=== PATIENT | female | born 1990 | race Caucasian/White ===

== ENCOUNTER 2020-03-21 06:52 | Emergency (ER) | payer OTHER, MEDICAID, SELFPAY ==
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
[2020-03-21 06:52] VITALS: BP 134/78; PULSE 99; RESP 16; TEMP 36.9; O2SAT 98
[2020-03-21 07:15] VITALS: BP 118/76; PULSE 94; O2SAT 100; BMI 20.9
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
[2020-03-21 07:28] LABS: HCG Qualitative, Serum Negative (Negative)
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
[2020-03-21 07:34] VITALS: BP 111/67; PULSE 84; O2SAT 100
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
[2020-03-21 07:44] LABS: Basophils # 0.1 K/mm3 (0-0.2); Basophils % 0.7 % (0.1-2.0); Eosinophils # 0.8 K/mm3 (0.0-0.4); Eosinophils % 8.5 % (0.1-12.0); Lymphocytes # 1.9 K/mm3 (0.7-4.5); Lymphocytes % 20.8 % (10-50); Mean Corpuscular HGB Conc 34.3 g/dL (31.8-35.4); Mean Corpuscular Volume 93.2 fl (81-99); Monocytes # 0.4 K/mm3 (0.1-1.0); Monocytes % 4.7 % (1.7-9.3); Neutrophils # 5.9 K/mm3 (1.8-7.8); Neutrophils % 65.3 % (37.0-80.0); Platelet Count 193 K/mm3 (142-424); Red Blood Count 4.07 M/mm3 (4.20-5.40); Red Cell Distribution Width 12.1 % (11.5-17.5)
[2020-03-21 07:45] LABS: Anion Gap 8.6 mEq/L (5-15); Blood Urea Nitrogen 11 mg/dl (7-17); Calcium 8.4 mg/dl (8.4-10.2); Carbon Dioxide 25 mmol/L (22.0-30.0); Chloride 110 mmol/L (98-107); Creatinine Clearance Estimated 110 mL/min (50-200); Estimated Glomerular Filt Rate 99 ml/min (>60); GFR (African American) 120 ML/MIN (>60); Glucose 110 mg/dl (74-100); Potassium 3.6 mmoL/L (3.5-5.1); Sodium 140 mmol/L (136-145)
[2020-03-21 07:48] LABS: Ethyl Alcohol < 10 mg/dl (0-10)
[2020-03-21 07:50] LABS: Microscopic, Urine URINE MICROSCOPIC (MICROSCOPIC)
--- NOTE | 2020-03-21 07:50 | PC.NURSE ---
Pt used bed umana at this time. UA sent to lab.
[2020-03-21 07:52] LABS: Alanine Aminotransferase 19 U/L (12-78); Aspartate Amino Transferase 39 U/L (14-36)
[2020-03-21 07:53] LABS: Albumin Level 3.5 g/dl (3.5-5.0); Albumin/Globulin Ratio 1.3 (1.1-1.8); Alkaline Phosphatase 45 U/L (38-126); Bilirubin,Total 0.4 mg/dl (0.2-1.3); Globulin 2.6 g/dL (1.3-3.2); Total Protein,Serum 6.1 g/dl (6.3-8.2)
[2020-03-21 07:53] LABS: Appearance,Urine SL CLOUDY (Clear); Bilirubin,Urine Negative (Negative); Blood, Urine 2+ (Negative); Color,Urine YELLOW (Yellow); Glucose,Urine (UA) Negative (Negative); Ketones,Urine Negative (Negative); Leukocyte Esterase,Urine Negative (Negative); Nitrate,Urine Negative (Negative); Protein,Urine Negative (Negative); Specific Gravity, Urine 1.015 (1.005-1.030); Urobilinogen,Urine 0.2 EU/dl (0.2)
[2020-03-21 08:09] LABS: Bacteria,Urine 1+ /lpf
--- NOTE | 2020-03-21 08:12 | PC.NURSE ---
Pt is with Rad.
[2020-03-21 09:16] VITALS: BP 105/58; PULSE 69; O2SAT 100
--- NOTE | 2020-03-21 09:34 | PC.NURSE ---
MEGAN FERRARA speaking with radiologist
--- NOTE | 2020-03-21 09:48 | PC.NURSE ---
calling [facility] at this time
--- NOTE | 2020-03-21 09:53 | PC.NURSE ---
At BS at this time with ER MD while she discusses POC with Pt and family. Pt educated on importance of keeping her neck still and keeping her c-collar in place and not to pull on it or move it. Pt verbalized understanding.
--- NOTE | 2020-03-21 09:55 | PC.NURSE ---
Dr Chavez speaking with Dr Pace at this time.
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
--- NOTE | 2020-03-21 10:10 | PC.NURSE ---
Report called to Jessica ROBLEDO RN. Awaiting EMS for transportation
[2020-03-21 10:35] VITALS: BP 105/58; PULSE 69; RESP 19; TEMP 36.9; O2SAT 100
[2020-05-24 09:27] LABS: POC Glucose,Bedside 156 (70-110)
== END 2020-03-21 10:37 | disposition short-term general hospital (02) ==
PROVIDERS: Emergency Provider Emergency Medicine
DX: S12.590A Other displaced fracture of sixth cervical vertebra, initial encounter for closed fracture (principal); S12.690A Other displaced fracture of seventh cervical vertebra, initial encounter for closed fracture; S27.321A Contusion of lung, unilateral, initial encounter; S06.2X1A Diffuse traumatic brain injury with loss of consciousness of 30 minutes or less, initial encounter; V49.49XA Driver injured in collision with other motor vehicles in traffic accident, initial encounter; Y92.413 State road as the place of occurrence of the external cause; M25.511 Pain in right shoulder; M79.671 Pain in right foot
CPT/HCPCS: 70450; 71045; 71275; 72125; 72128; 72131; 72170; 73030; 73630; 74177; 80053; 81001; 82962; 84703; 85025; 96365; 96375; 99283; J2405; Q9967

== ENCOUNTER 2020-11-01 15:00 | Outpatient (RCR) | payer OTHER, SELFPAY ==
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
== END 2020-11-26 15:00 | disposition home or self-care (01) ==
LOC: PT.CARL 15:00
PROVIDERS: Visit Provider Emergency Medicine
DX: M54.9 Dorsalgia, unspecified (principal); M79.601 Pain in right arm
CPT/HCPCS: 97110; 97116; 97140; 97163; 97164; 97530

== ENCOUNTER 2023-03-18 07:14 | Emergency (ER) | payer OTHER, SELFPAY ==
[2023-03-18] VITALS (8 sets, daily range): BP systolic 107–127; BP diastolic 67–85; PULSE 74–110; RESP 15–20; TEMP 36.7–36.8; O2SAT 98–100
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
--- NOTE | 2023-03-18 07:27 | PC.NURSE ---
trauma alert cancelled
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
[2023-03-18 07:35] LABS: Basophils % 0.2 % (0.1-2.0); Eosinophils # 0.3 K/mm3 (0.0-0.4); Eosinophils % 2.9 % (0.1-12.0); Hemoglobin 14.2 g/dL (12.2-16.2); Lymphocytes # 1.6 K/mm3 (0.7-4.5); Lymphocytes % 14.9 % (10-50); Mean Corpuscular HGB Conc 32.9 g/dL (31.8-35.4); Mean Corpuscular Hemoglobin 28.7 pg (27.0-31.2); Mean Corpuscular Volume 87.1 fl (81-99); Mean Platelet Volume 9.5 fl (7.4-10.4); Monocytes # 0.6 K/mm3 (0.1-1.0); Monocytes % 5.1 % (1.7-9.3); Neutrophils # 8.3 K/mm3 (1.8-7.8); Platelet Count 268 K/mm3 (142-424); Red Blood Count 4.94 M/mm3 (4.20-5.40); Red Cell Distribution Width 12.1 % (11.5-17.5); White Blood Count 10.8 K/mm3 (4.8-10.8)
--- NOTE | 2023-03-18 07:35 | PC.NURSE ---
pt wet clothes removed pt in clean gown, warm blankets given, socks on pt. pt remains in c-collar
--- NOTE | 2023-03-18 07:37 | ECG_ITS ---
APPROVED REPORT Exam: Resting ECG HR:94 bpm ECG Measurements Heart Rate 94 AXES NC 147 P 83 QRSd 87 QRS 94 QT 358 T 50 QTc 410 Conclusion SINUS RHYTHM WITH SINUS ARRHYTHMIA POSSIBLE RIGHT ATRIAL ENLARGEMENT [0.25mV P-WAVE] BORDERLINE RIGHT AXIS DEVIATION [QRS AXIS > 90] BORDERLINE ECG Marked artifact limits interpretation UNCONFIRMED REPORT Electronically signed by : Jasen Carr MD 03/20/2023 16:10:39
[2023-03-18 07:40] LABS: Potassium 3.6 mmoL/L (3.5-5.1)
[2023-03-18 07:41] LABS: Alanine Aminotransferase 19 U/L (12-78); Albumin Level 4.2 g/dl (3.5-5.0); Albumin/Globulin Ratio 1.5 (1.1-1.8); Alkaline Phosphatase 57 U/L (38-126); Anion Gap 13.6 mEq/L (5-15); Aspartate Amino Transferase 31 U/L (14-36); Bilirubin,Total 0.4 mg/dl (0.2-1.3); Blood Urea Nitrogen 16 mg/dl (7-17); Calcium 8.8 mg/dl (8.4-10.2); Carbon Dioxide 26 mmol/L (22.0-30.0); Chloride 102 mmol/L (98-107); Estimated Glomerular Filt Rate 97 ml/min (>60); GFR (African American) 117 ML/MIN (>60); Globulin 2.8 g/dL (1.3-3.2); Glucose 100 mg/dl (74-100); Sodium 138 mmol/L (136-145)
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
--- NOTE | 2023-03-18 07:42 | PC.NURSE ---
pt to CT via stretcher
[2023-03-18 07:54] LABS: Troponin I 0.02 ng/ml (0.00-0.034)
[2023-03-18 07:58] LABS: HCG,Quantitative < 2 mIU/ml (0-5.42)
[2023-03-18 08:03] LABS: Activated Partial Thrombo Time 18.2 seconds (22.8-30.6)
--- NOTE | 2023-03-18 08:21 | PC.NURSE ---
pt return from CT
[2023-03-18 08:55] LABS: Microscopic, Urine URINE MICROSCOPIC (MICROSCOPIC)
[2023-03-18 08:56] LABS: Appearance,Urine CLEAR (Clear); Bilirubin,Urine Negative (Negative); Blood, Urine Negative (Negative); Color,Urine YELLOW (Yellow); Glucose,Urine (UA) Negative (Negative); Ketones,Urine Negative (Negative); Leukocyte Esterase,Urine Negative (Negative); Nitrate,Urine Negative (Negative); Protein,Urine Negative (Negative); Specific Gravity, Urine 1.015 (1.005-1.030); Urobilinogen,Urine 0.2 EU/dl (0.2)
[2023-03-18 09:11] LABS: Squamous Epithelial Cell,Urine Occasional #/hpf (0-5); WBC,Urine Occasional #/hpf (0-3)
== END 2023-03-18 11:27 | disposition home or self-care (01) ==
PROVIDERS: Emergency Provider Emergency Medicine; PCP Nurse Practitioner Family
DX: R07.89 Other chest pain (principal); R51.9 Headache, unspecified; S00.93XA Contusion of unspecified part of head, initial encounter; S01.311A Laceration without foreign body of right ear, initial encounter; F17.290 Nicotine dependence, other tobacco product, uncomplicated; V48.5XXA Car driver injured in noncollision transport accident in traffic accident, initial encounter
CPT/HCPCS: 70450; 70486; 70496; 70498; 71045; 71275; 72125; 72128; 72131; 72170; 74174; 80053; 81001; 84484; 84702; 85025; 85730; 93005; 96361; 96374; 96375; 99285; J0131; Q9967

== ENCOUNTER 2024-07-18 11:28 | Emergency (ER) | payer BC, SELFPAY ==
[2024-07-18 11:30] VITALS: BP 137/78; PULSE 101; RESP 22; TEMP 36.5; O2SAT 98; BMI 25.3
[2024-07-18 11:36] VITALS: BP 138/78; PULSE 99; O2SAT 100
[2024-07-18] MEDS: BELLADONNA ALKALOIDS 60 ML ML PO (12:06)
[2024-07-18] MEDS: KETOROLAC 30MG/ML VIAL 15 MG IV (12:06)
[2024-07-18] MEDS: SODIUM CHLORIDE 0.9% 10ML VIAL 10 ML IV (12:06)
[2024-07-18] MEDS: PANTOPRAZOLE 40MG VIAL 40 MG IV (12:06)
[2024-07-18 12:09] LABS: Basophils # 0.1 K/mm3 (0-0.2); Basophils % 0.6 % (0.1-2.0); Eosinophils # 0.3 K/mm3 (0.0-0.4); Eosinophils % 2.7 % (0.1-12.0); Hematocrit 40.2 % (37.0-47.0); Hemoglobin 13.9 g/dL (12.2-16.2); Lymphocytes # 1.5 K/mm3 (0.7-4.5); Lymphocytes % 16.5 % (10-50); Mean Corpuscular HGB Conc 34.6 g/dL (31.8-35.4); Mean Corpuscular Hemoglobin 29.1 pg (27.0-31.2); Mean Corpuscular Volume 84.1 fl (81-99); Mean Platelet Volume 9.8 fl (7.4-10.4); Monocytes # 0.5 K/mm3 (0.1-1.0); Monocytes % 5.5 % (1.7-9.3); Neutrophils % 74.5 % (37.0-80.0); Platelet Count 318 K/mm3 (142-424); Red Blood Count 4.78 M/mm3 (4.20-5.40); Red Cell Distribution Width 11.2 % (11.5-17.5); White Blood Count 9.4 K/mm3 (4.8-10.8)
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
[2024-07-18 12:35] LABS: Alanine Aminotransferase 14 U/L (12-78); Albumin Level 4.4 g/dl (3.5-5.0); Albumin/Globulin Ratio 1.7 (1.1-1.8); Alkaline Phosphatase 57 U/L (38-126); Anion Gap 10.7 mEq/L (5-15); Aspartate Amino Transferase 21 U/L (14-36); Bilirubin,Total 0.6 mg/dl (0.2-1.3); Blood Urea Nitrogen 10 mg/dl (7-17); Carbon Dioxide 28 mmol/L (22.0-30.0); Chloride 99 mmol/L (98-107); Creatinine Clearance Estimated 127 mL/min (50-200); Estimated Glomerular Filt Rate 96 ml/min (>60); GFR (African American) 116 ML/MIN (>60); Globulin 2.6 g/dL (1.3-3.2); Glucose 100 mg/dl (74-100); Lipase 36 U/L (23-300); Potassium 3.7 mmoL/L (3.5-5.1); Sodium 134 mmol/L (136-145)
[2024-07-18 12:52] LABS: HCG,Quantitative < 2 mIU/ml (0-5.42)
[2024-07-18 13:17] LABS: HIV Combo NEGATIVE (Negative)
[2024-07-18 13:20] VITALS: BP 114/67; PULSE 87; O2SAT 99
--- NOTE | 2024-07-18 13:22 | PC.NURSE ---
ROUNDED ON PT ADJUSTED HEAD OF BED FOR MORE COMFORTABLE POSITION AND WAS GIVEN A WARM BLANKET AND LIGHT TURNED OFF SO PT COULD REST NO OTHER NEEDS AT THIS TIME CALL LIGHT IN REACH
[2024-07-18 13:24] LABS: Hepatitis C Ab Qual. W/ RFX REACTIVE (Negative)
[2024-07-18 13:30] VITALS: BP 112/67; PULSE 84; O2SAT 99
[2024-07-18 14:00] VITALS: BP 113/64; PULSE 82; O2SAT 99
[2024-07-18 14:29] VITALS: BP 113/64; PULSE 79; RESP 20; TEMP 36.6; O2SAT 98
== END 2024-07-18 14:30 | disposition home or self-care (01) ==
PROVIDERS: Emergency Provider Emergency Medicine; PCP Nurse Practitioner Family
DX: K29.70 Gastritis, unspecified, without bleeding (principal); R07.9 Chest pain, unspecified; R06.02 Shortness of breath; R10.10 Upper abdominal pain, unspecified; M54.9 Dorsalgia, unspecified
CPT/HCPCS: 80053; 83690; 84702; 85025; 86803; 87389; 87522; 96374; 96375; 99283; J1885

== ENCOUNTER 2025-04-11 22:30 | Outpatient (CLI) | payer BC, SELFPAY ==
[2025-04-11 19:16] LABS: Hematocrit 42.1 % (37.0-47.0); Hemoglobin 13.9 g/dL (12.2-16.2); Immature Granulocytes % 0.4 %; Mean Corpuscular HGB Conc 33.0 g/dL (31.8-35.4); Mean Corpuscular Hemoglobin 28.9 pg (27.0-31.2); Mean Corpuscular Volume 87.5 fl (81-99); Nucleated Red Blood Cells % 0 %; Platelet Count 284 K/mm3 (142-424); Red Blood Count 4.81 M/mm3 (4.20-5.40); Red Cell Distribution Width-SD 38.4 fL; White Blood Count 7.5 K/mm3 (4.8-10.8)
[2025-04-11 20:10] LABS: Alanine Aminotransferase 17 U/L (12-78); Albumin Level 4.3 g/dl (3.5-5.0); Albumin/Globulin Ratio 1.6 (1.1-1.8); Alkaline Phosphatase 22 U/L (38-126); Amylase 58 U/L (30-110); Anion Gap 15.7 mEq/L (5-15); Aspartate Amino Transferase 50 U/L (14-36); Bilirubin,Total 1.7 mg/dl (0.2-1.3); Blood Urea Nitrogen 9 mg/dl (7-17); Calcium 9.0 mg/dl (8.4-10.2); Carbon Dioxide 23 mmol/L (22.0-30.0); Chloride 102 mmol/L (98-107); Creatinine,Serum 0.40 mg/dl (0.52-1.04); Estimated Glomerular Filt Rate 183 ml/min (>60); GFR (African American) 221 ML/MIN (>60); Globulin 2.7 g/dL (1.3-3.2); Glucose 52 mg/dl (74-100); Lipase 26 U/L (23-300); Potassium 5.7 mmoL/L (3.5-5.1); Sodium 135 mmol/L (136-145); Total Protein,Serum 7.0 g/dl (6.3-8.2)
[2025-04-11 20:40] LABS: Thyroid Stimulating Hormone 2.70 uIU/mL (0.465-4.68)
[2025-04-13 11:20] LABS: Hepatitis B Surface Antigen Negative (Negative)
== END 2025-04-11 23:59 | disposition home or self-care (01) ==
LOC: LAB.DROPOF 22:30
PROVIDERS: PCP Nurse Practitioner Family; Visit Provider Nurse Practitioner Family
DX: R10.10 Upper abdominal pain, unspecified (principal); Z11.59 Encounter for screening for other viral diseases
CPT/HCPCS: 80053; 82150; 83690; 84443; 85025; 87340